=== PATIENT | female | born 2000 | race Caucasian/White ===

== ENCOUNTER 2024-09-25 15:04 | Emergency (ER) | payer OTHER ==
[2024-09-25 15:23] LABS: BASOPHILS ABSOLUTE AUTO 0.03 K/uL (0.00-0.20); BASOPHILS PERCENT AUTO 0.5 % (0.0-2.0); EOSINOPHILS ABSOLUTE AUTO 0.29 K/uL (0.00-0.50); EOSINOPHILS PERCENT AUTO 4.4 % (0.0-5.0); HEMATOCRIT 32.4 % (34.0-46.0); HEMOGLOBIN 10.4 g/dL (11.7-15.5); IMMATURE GRAN ABSOLUTE AUTO 0.01 10^3/uL (0.00-0.04); IMMATURE GRAN PERCENT AUTO 0.2 % (0.0-0.4); LYMPHOCYTES ABSOLUTE AUTO 2.47 K/uL (0.50-3.50); LYMPHOCYTES PERCENT AUTO 37.4 % (10.0-50.0); MEAN CORPUSCULAR HEMOGLOBIN 28.4 pg (28.2-33.3); MEAN CORPUSCULAR HGB CONC 32.1 g/dL (31.7-36.0); MEAN CORPUSCULAR VOLUME 88.5 fL (84.0-98.0); MONOCYTES ABSOLUTE AUTO 0.54 K/uL (0.00-1.00); MONOCYTES PERCENT AUTO 8.2 % (2.0-14.0); NEUTROPHILS ABSOLUTE AUTO 3.26 K/uL (1.40-7.00); NEUTROPHILS PERCENT AUTO 49.3 % (45.0-80.0); PLATELET COUNT,PLT 284 K/uL (150-350); RED BLOOD CELL COUNT 3.66 M/uL (3.77-5.09); RED CELL DISTRIBUTION WIDTH 13.5 % (11.2-14.1); WHITE BLOOD CELL COUNT,WBC 6.6 K/uL (4.0-10.2)
[2024-09-25] MEDS ORDERED: Naloxone 0.4 MG/ML SDV IVPUSH PRN (15:29)
[2024-09-25] MEDS: Sodium Chloride 0.9% 1,000 ML IV SCH (15:30)
[2024-09-25] MEDS: HYDROmorphone 0.5 MG/0.5 ML Syringe IVPUSH ONE ×2 (15:32→16:55)
[2024-09-25 15:49] LABS: ALBUMIN 3.5 g/dL (3.4-5.0); BILIRUBIN TOTAL 0.5 mg/dL (0.2-1.0); CALCIUM 8.8 mg/dL (8.5-10.1); CREATININE 1.05 mg/dL (0.51-1.17); EST CRCL DRUG DOSING (CG) 86.34 mL/min; POTASSIUM,K 3.8 mmol/L (3.5-5.1); PROTEIN TOTAL,TP 6.8 g/dL (6.4-8.2)
[2024-09-25 15:50] LABS: INR 1.1 (0.9-1.1); PROTHROMBIN TIME 10.8 SEC (9.0-11.1); PTT,PARTIAL THROMBOPLSTIN TIME 26.1 SEC (23.8-34.4)
[2024-09-25] MEDS: Sodium Chloride 0.9% 10 ML Syringe FLUSH PRN (16:54)
[2024-09-25] MEDS: Take Home: oxyCODONE HCl 5 MG Tab, 5 Tab Pack PO ONE (17:59)
[2024-09-25 18:05] LABS: APPEARANCE,URINE CLOUDY; BILIRUBIN,URINE NEGATIVE (NEGATIVE); COLOR,URINE YELLOW; GLUCOSE,URINE NEGATIVE (NEGATIVE); KETONES,URINE NEGATIVE (NEGATIVE); LEUKOCYTE ESTERASE,URINE MODERATE (NEGATIVE); NITRITE,URINE NEGATIVE (NEGATIVE); OCCULT BLOOD,URINE TRACE-LYSED (NEGATIVE); PROTEIN,URINE NEGATIVE (NEGATIVE); UROBILINOGEN,URINE 0.2 E.U./dL (0.2-1.0)
[2024-09-25 18:14] LABS: RBC,URINE 0-5 /HPF
[2024-09-25 18:15] LABS: BACTERIA,URINE FEW /HPF (NONE TO FEW); EPITHELIAL CELLS,URINE MANY /LPF; WBC,URINE 75-100 /HPF
== END 2024-09-25 18:10 | disposition home or self-care (01) ==
LOC: LL.ED 15:04
DX: K80.20 Calculus of gallbladder without cholecystitis without obstruction (principal); Z88.0 Allergy status to penicillin
CPT/HCPCS: 36415; 71045; 74176; 80053; 81001; 83605; 83690; 84484; 85025; 85379; 85610; 85730; 87086; 93005; 96374; 96376; 99285-25; A9270-GY; J7030